=== PATIENT | female | born 1995 | race Caucasian/White ===

== ENCOUNTER 2021-04-05 10:07 | Outpatient (CLI) | payer SELFPAY ==
--- NOTE | 2021-04-05 11:39 | XRAY Report ---
PROCEDURE: Tib/Fib RT INDICATIONS: HEMATOMA TO PROXIMAL R TIBIA TECHNIQUE: 2 views of the tibia and fibula were acquired. COMPARISON: None. FINDINGS: Bones: No fractures or dislocations. No suspicious bony lesions. Soft tissues: Possible mild anterior soft tissue swelling. IMPRESSION: Possible mild anterior soft tissue swelling otherwise negative examination. If the patient's pain or other symptoms persist, consider further evaluation with MRI. Reviewed by: Vinayak Mason MD on 04/05/2021 11:38 AM PDT Approved by: Vinayak Mason MD on 04/05/2021 11:38 AM PDT Station ID: [id number]
--- NOTE | 2021-04-05 12:12 | XRAY Report ---
PROCEDURE: Ankle 3 View RT INDICATIONS: HEMATOMA TECHNIQUE: 3 views of the ankle were acquired. COMPARISON: None FINDINGS: Bones: No fractures or dislocations. Ankle mortise is normally aligned. No suspicious bony lesions . Accessory ossicle noted at the talonavicular joint. Soft tissues: No tibiotalar joint effusion. Achilles tendon appears normal. IMPRESSION: No fracture. No osseous lesion. If there are persistent symptoms or continued clinical concern for pa thology, then repeat plain film radiographs (7-10 days) or advanced imaging (CT, MR, bone scan) shoul d be considered for further evaluation. Reviewed by: Yesenia Deras MD, PhD on 04/05/2021 12:10 PM PDT Approved by: Yesenia Deras MD, PhD on 04/05/2021 12:10 PM PDT Station ID: [id number]
== END 2021-04-05 23:59 | disposition home or self-care (01) ==
LOC: DI.N 10:07
PROVIDERS: ATTEND Physician Assistant Medical
DX: M79.81 Nontraumatic hematoma of soft tissue (principal)

== ENCOUNTER 2021-05-15 08:00 | Outpatient (CLI) | payer SELFPAY ==
[2021-05-16 01:08] LABS: BACTERIAL VAGINOSIS DNA POSITIVE (NEGATIVE); CANDIDA KRUSEI DNA NEGATIVE (NEGATIVE); TRICHOMONAS VAGINALIS DNA NEGATIVE (NEGATIVE)
[2021-05-16 01:09] LABS: CANDIDA GLABRATA DNA NEGATIVE (NEGATIVE); CANDIDA GROUP DNA NEGATIVE (NEGATIVE)
== END 2021-05-15 23:59 | disposition home or self-care (01) ==
LOC: LAB 08:00
PROVIDERS: ATTEND Physician Assistant Medical
DX: R39.9 Unspecified symptoms and signs involving the genitourinary system (principal); N76.0 Acute vaginitis
CPT/HCPCS: 87086; 87661; 87801